=== PATIENT | female | born 1960 | race Caucasian/White ===

== ENCOUNTER 2022-12-03 15:07 | Emergency (ER) | payer SELFPAY ==
[~2022-12-03] VITALS: Ht 162.6 cm; Wt 77.1 kg
[2022-12-03 15:18] VITALS: BP 134/70
--- NOTE | 2022-12-03 15:30 | NUR ---
62/F WALKED IN C/O RIGHT EAR PAIN X 1 MONTH. AFEBRILE AT TRIAGE. NO DISCHARGE. PMH: DENIES
[2022-12-03] MEDS ORDERED: CARBAMIDE PEROXIDE 6.5% OT 15 ML BTL OT ONE (15:45)
[2022-12-03] MEDS ORDERED: ACET15SO36 RIGHT EAR (16:18)
--- NOTE | 2022-12-03 16:25 | NUR ---
Note van in ED - 12/03/22 at 1630 by [email or web address] PT LEFT WITHOUT Felecia PAPERS. RX OF ACETIC ACID SENT TO [facility].
--- NOTE | 2022-12-03 16:34 | NUR ---
Patient discharged with v/s stable. Written and verbal after care instructions ABOUT EAR WAX BUILD UP given and explained. Patient alert, oriented and verbalized understanding of instructions. Ambulatory with steady gait. All questions addressed prior to discharge. ID band removed. Patient advised to follow up with PMD. Rx of ACETIC ACID given. Patient educated on indication of medication including possible reaction and side effects. Opportunity to ask questions provided and answered.
== END 2022-12-03 16:34 | disposition home or self-care (01) ==
LOC: MED 15:07
DX: H61.21 Impacted cerumen, right ear (principal); F17.210 Nicotine dependence, cigarettes, uncomplicated; Z79.899 Other long term (current) drug therapy
CPT/HCPCS: 99283